=== PATIENT | male | born 1945 | race Caucasian/White ===

== ENCOUNTER 2016-05-20 21:52 | Inpatient (IN) | payer MEDICARE, MEDICAID ==
[~2016-05-20] VITALS: Ht 188 cm; Wt 112.2 kg
[~2016-05-20 21:52] MED LIST changes: -CALCIUM CARB500 MG GT; -PIPERACILLIN IV; -TAZOBACTAM IV; -VANCO-0.9%1.75 GM/50 IV; -[UNRECOGNIZED DRUG - OTHER] IV
[2016-05-20 21:54] VITALS: BP 117/89
--- NOTE | 2016-05-20 22:18 | Emergency Room Report ---
History of Present Illness Time Seen by [id number] Presenting Problem in Triage Pt arrived:Ambulance Stretcher Presenting Problem:C/O VOMITING X 2 DAYS WITH CONGESTION. 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 N Clinical Suspician of Infection? Y Mental Status: 1 - Regular (Normal Baseline) Sepsis Risk:Severe Sepsis Risk Have you (or family members/close friends) recently traveled outside the [place]? N If Yes, where/when: Have you had exposure to infectious disease within the past month? N TB? Other? Specify: Comment The patient is brought in by ambulance from a senior care. The report given is that he has been vomiting for 2 days and they are concerned about possible aspiration. Upon my encounter, the patient is not verbally responsive to questions and does not follow commands. He appears alert and aware of my presence however. Reported congested respirations and SaO2 90%. ALLERGIES Coded Allergies: tuberculin, purified protein deriva (tuberculin,purif.prot.deriv.) (Mild, ) Home Medications Reported Medications Ascorbic Acid (Vitamin C) 1,000 MG GT DAILY Acetaminophen (Acetaminophen Extra Strength) 1,000 MG PO Q6HP PRN PAIN/FEVER GUAIFENESIN/DEXTROMETHORPHAN (Q-Tussin Dm Syrup) 10 ML PO Q4HP PRN COUGH ALBUTEROL (Albuterol 0.083% Neb) 2.5 MG INH Q6HP PRN SHORTNESS OF BREATH Bisacodyl (Bisacodyl Supp) 10 MG [place] DAILYP PRN CONSTIPATION LACTOSE-REDUCED FOOD/FIBER (Jevity 1.5 Tree Liquid) 55 ML GT Q1 ONDANSETRON HCL (Zofran 4MG Tab) 4 MG PO DAILYP PRN NAUSEA Ferrous Sulfate (Ferrous Sulfate 220MG/5ML Elixir;473ML Bottle) 330 MG GT DAILY VALPROIC ACID ( SODIUM SALT) (Depakene) 750 MG GT TID MULTIVITS W-MIN/FERROUS GLUC (Certa Harleen Liquid) 15 ML PO DAILY POLYETHYLENE GLYCOL (Miralax) 17 GM GT DAILY Folic Acid/Mv,Fe,Other Min/Lut (Certa Plus Tablet) 1 EACH PO DAILY LOPERAMIDE HCL (Loperamide) 2 MG GT Q3HP PRN DIARRHEA Clonazepam (Clonazepam 0.5MG) 0.5 MG GT BID Famotidine (Pepcid 20MG Tablet) 20 MG GT BID Metoprolol Tartrate (Metoprolol) 25 MG GT BID Potassium Chloride 7.5 ML GT DAILY Topiramate (Topamax) 50 MG GT BID Lactulose (Lactulose) 20 GM GT DAILYP PRN CONSTIPATION History Medical History General CAD? No Angina: No [place]: No Hypertension? Yes Hyperlipidemia? No CHF? No DVT? No PE? No COPD? No Asthma? No Anemia? No GERD? Yes Gastric ulcers? No GI Bleed? No Hernia? No Thyroid Problems? No Hypothyroidism? No CVA? No Seizures? Yes Diabetes? No Renal Insuffiency? No End Stage Renal Disease? No UTI? Yes Stones? No GB Disease: No Nephritic Syndrome? No Asplenia? No Hepatitis? No Sickle Cell Disease? No Arthritis? No Migraines? No Cataracts? No Glaucoma? No MRSA? No HIV? No TB? No Anxiety? Yes Depression? Yes Cancer? No Immunization Hx DT/Tetanus Unknown Flu 2015-FSN Pneumonia Received In Past Surgical Hx Previous Surgery?Y HAS HAD BRAIN SURGERY G-TUBE PLACEMENT SUPRA-PUBIC CATH GROSHONG CATHETER Family History Family Hx Diabetes No CAD No Hypertension No Hyperlipidemia No Cancer No TB No Social History Smoking Hx Smoker: Unknown if Ever Smoked Tobacco: No Packs/day N/A Alcohol Alcohol: No Review of Systems All Other Systems Reviewed and Negative (unobtainable due to condition) Physical Exam Vital Signs Vital Signs Date Time Temp Pulse Resp B/P Pulse O2 O2 Flow FiO2 Ox Delivery Rate 05/21 0016 98.4 52 24 154/83 88 3 05/208 96.9 72 24 129/78 91 3 05/20 2321 74 24 127/89 93 3 05/20 2211 94 05/20 2201 24 94 2 05/20 2154 100.1 90 24 117/89 94 General Appearance debilitated, nonverbal. Alert and follows me with his eyes, but does not answer questions or follow commands. Eye Exam - bilateral eye normal exam, bilateral eye PERRL, bilateral eye EOMI Ear, Nose, Throat hearing grossly normal, normal ENT inspection Neck normal inspection, non-tender, supple, full range of motion Respiratory Status Yes: trachea midline, chest symmetrical. No: respiratory distress. Lung Sounds bilateral: inspiration (congested upper airway sounds), expiration (congested upper airway sounds). Cardiovascular normal exam, regular rate/rhythm, no peripheral edema, no gallop, no JVD, no murmur, no rub, normal peripheral pulses Peripheral Pulses Pulses normal Yes Gastrointestinal normal bowel sounds, soft, gastrostomy tube and a suprapubic catheter Extremities contractures of the hands. Good muscle tone of arms., does not move legs spontaneously or to stimulus., bandages and heel pads present bilaterally. No signs of cellulitis on legs. Neurologic alert Mental status normal mood/affect Skin intact, normal color, warm/dry Medical Decision Making LABS/Meds/Orders Pt receiving controlled substance in ED? No Results/Orders Laboratory Tests 05/20/16 2336: Urine Color YELLOW, Urine Appearance CLEAR, Urine pH 8.0, Ur Specific [place] 1.020, Urine Protein 3+ H, Urine Ketones TRACE H, Urine Blood 1+ H, Urine Nitrate NEGATIVE, Urine Bilirubin NEGATIVE, Urine Urobilinogen 1.0, Ur Leukocyte Esterase 2+ H, Urine RBC 3-5, Urine WBC 10-20, Ur Squamous Epith Cells 5-10, Calcium Oxalate Crystal 1+, Triple Phos Crystals 2+, Amorphous Sediment 1+, Urine Bacteria 2+, Urine Glucose NEGATIVE 05/20/16 2230: Amylase 169 H, Lipase 254 05/20/16 2215: Troponin I 0.06 05/20/16 221: Lactic Acid 3.3 H 05/20/162214: Sodium 139, Potassium 4.0, Chloride 97 L, Carbon Dioxide 28, BUN 27 H, Creatinine 1.2, Estimated Creat Clear 88, Estimated GFR (MDRD) 60, Glucose 176 H, Calcium 9.1, Total Bilirubin 0.6, AST 36, ALT 21, Alkaline Phosphatase 109, Total Protein 9.4 H, Albumin 2.5 L, Globulin 6.9 H, Albumin/Globulin Ratio 0.4 L, WBC 20.4 *H, RBC 4.09 L, Hgb 14.5, Hct 45.0, MCV 110.0 H, RDW 14.4, Plt Count 297, MPV 7.5, Gran % 86.7 H, Gran # 17.4 H, Total Counted 100, Lymphocytes % 8.3 L, Monocytes % 4.7, Eosinophils % 0.2, Basophils % 0.1, Neutrophils 89 H, Lymphocytes (Manual) 8 L, Lymphocytes # 1.7, Monocytes ( Manual) 3, Monocytes # 0.9, Eosinophils # 0.0, Basophils # 0.0, Platelet Estimate NORMAL, Anisocytosis 1+, PUBS MCHC 32.0, MCH 35.2 H Current Medication Orders Sig/Mohit Start time Last Medication Dose Route Stop Time Status Admin Clindamycin Phosphate 600 MG ONCE ONE 05/20 2344 DC 05/20 Sodium Chloride 100 ML IV 05/21 0046 2345 Levofloxacin/Dextrose 150 ML ONCE ONE 05/20 2345 r 05/20 IV 05/21 0114 2348 Miscellaneous 1 EACH CONSULT PHARMACY 05/20 2345 AC Information * 05/21 1137 Clindamycin Phosphate 0 .STK-MED ONE 05/20 2344 DC .ROUTE Sodium Chloride 100 ML .STK-MED ONE 05/20 2344 DC IV Levofloxacin/Dextrose 150 ML .STK-MED ONE 05/20 2343 DC IV Sodium Chloride 1,000 ML .Q1H1M 05/20 2330 AC 05/20 IV 05/21 0245 2323 Sodium Chloride 1,000 ML .STK-MED ONE 05/20 2317 DC IV Sodium Chloride 2,000 ML .STK-MED ONE 05/20 2317 DC IV Acetaminophen 0 .STK-MED ONE 05/20 2248 DC PA Acetaminophen 650 MG ONCE ONE 05/20 2245 DC 05/20 PA 05/20 224 224 Sodium Chloride 10 ML PRN PRN 05/20 2215 AC IV 05/21 2209 Orders Procedure Date/time Status DIET-NOTHING BY MOUTH 05/21 B Active CULTURE, URINE 05/20 2336 Active LIPASE 05/20 2259 Complete AMYLASE 05/[address] ABD & PELVIS W/O CONTRAST 05/20 2246 Active LACTIC ACID FOLLOW UP 05/[address] ABD/PELVIS REQ 05/20 2244 Complete 12 LEAD EKG-BESSON (INITIAL) 05/20 2226 Active ELECTROCARDIOGRAM REQUEST 05/20 2226 Active TROPONIN I 05/20 2226 Complete DIFFERENTIAL-WBC 05/20 2214 Complete CHEST-PORTABLE 05/20 2209 Active SUCTION PER ORAL/NASAL/ET PRN 05/20 2209 Active IV SALINE LOCK 05/20 2209 Active OXYGEN PER NURSE 05/20 2209 Active CULTURE, BLOOD 05/20 2209 Active URINALYSIS/COMPLETE 05/20 2209 Complete LACTIC ACID 05/20 2209 Complete CBC WITH AUTO DIFF 05/20 2209 Complete CHEM 12 PROFILE 05/20 2209 Complete CM/EKG CM/EKG Comments EKG interpreted by Kalia Blanchard MD: Rhythm: sinus tachycardia Rate: 112 [place]: LEFT Ectopy: none Conduction: Incomplete LEFT bundle branch block ST Segment Changes: none T Wave Changes: none Q Waves: none No evidence of acute ischemia or injury Baseline artifact present, but I consider the EKG adequate for accurate interpretation. XRAY/CT/US XRAY/CT/US XRAY chest Comment X-ray interpreted by Kalia Blanchard M.D.: streaky R perihilar markings, no definite confluent infiltrate CT abdomen, pelvis Comment CT scan interpreted by [facility] radiologist. Faxed report received and reviewed: No acute findings. Atelectasis both lung bases. Progress - 11:35 PM: Case discussed with Dr. Clemens for Dr. Rowan. Antibiotics discussed. We will treat with Levaquin, clindamycin, and vancomycin for sepsis and possible aspiration pneumonia. I have discussed the case with Dr. Clemens who agrees to admit the patient to the hospital. We discussed the patient's clinical information, including history, exam, laboratory and radiology results and ED course. Per hospital procedure, I will write temporary bridge inpatient orders on the patient. Specific orders requested by the admitting physician: Sepsis order set. Antibiotics as above. Departure Departure Disposition Still a Patient Clinical Impression Primary Impression: Sepsis Qualifiers: Sepsis type: sepsis due to unspecified organism Qualified Code: A41.9 - Sepsis, unspecified organism Condition STABLE Referrals Ran Florentino (Family) ED Critical Care Critical Care No at [phone]
[2016-05-20 22:34] LABS: LYMPH # 1.7 K/mm3 (0.7-4.5); LYMPH % 8.3 % (10-50)
[2016-05-20 22:39] LABS: HEMOGLOBIN 14.5 g/dL (14.1-18.0)
[2016-05-20 23:54] LABS: URINE BILIRUBIN - DIPSTICK NEGATIVE (NEG); URINE BLOOD 1+ (NEG)
[2016-05-21] VITALS (17 sets, daily range): BP systolic 119–152; BP diastolic 58–85
[2016-05-21 00:22] LABS: NEUTROPHILS 89 % (42-76)
[2016-05-21] MEDS ORDERED: NORCO 325 MG-101 TAB GT (07:01)
[2016-05-21] MEDS ORDERED: CALCIUM CARB500 MG GT (07:02)
[2016-05-21 07:48] LABS: LYMPH # 1.3 K/mm3 (0.7-4.5); LYMPH % 9.6 % (10-50)
[2016-05-21 08:17] LABS: HEMOGLOBIN 11.7 g/dL (14.1-18.0)
--- NOTE | 2016-05-21 08:25 | CONSULT NOTE ---
Pharmacokinetic Consult Date of consult: 05/21/16 Time of consult: 822 Referring provider: DR. CARROLL Reason for consult: VANCOMYCIN DOSING Allergies: Coded Allergies: tuberculin, purified protein deriva (tuberculin,purif.prot.deriv.) (Mild, ) Home Medications: Reported Medications Ascorbic Acid (Vitamin C) 1,000 MG GT DAILY Acetaminophen (Acetaminophen Extra Strength) 1,000 MG PO Q6HP PRN PAIN/FEVER GUAIFENESIN/DEXTROMETHORPHAN (Q-Tussin Dm Syrup) 10 ML PO Q4HP PRN COUGH ALBUTEROL (Albuterol 0.083% Neb) 2.5 MG INH Q6HP PRN SHORTNESS OF BREATH Bisacodyl (Bisacodyl Supp) [address] DAILYP PRN CONSTIPATION LACTOSE-REDUCED FOOD/FIBER (Jevity 1.5 Tree Liquid) 55 ML GT Q1 ONDANSETRON HCL (Zofran 4MG Tab) 4 MG PO DAILYP PRN NAUSEA Ferrous Sulfate (Ferrous Sulfate 220MG/5ML Elixir;473ML Bottle) 330 MG GT DAILY VALPROIC ACID ( SODIUM SALT) (Depakene) 750 MG GT TID MULTIVITS W-MIN/FERROUS GLUC (Certa Harleen Liquid) 15 ML PO DAILY POLYETHYLENE GLYCOL (Miralax) 17 GM GT DAILY Folic Acid/Mv,Fe,Other Min/Lut (Certa Plus Tablet) 1 EACH PO DAILY HYDROCODONE/ACETAMINOPHEN ([place] 10-325 Tablet) 1 TAB PO TID Calcium Carbonate ([id number]) 500 MG PO DAILY LOPERAMIDE HCL (Loperamide) 2 MG GT Q3HP PRN DIARRHEA Clonazepam (Clonazepam 0.5MG) 0.5 MG GT BID Famotidine (Pepcid 20MG Tablet) 20 MG GT BID Metoprolol Tartrate (Metoprolol) 25 MG GT BID Potassium Chloride 7.5 ML GT DAILY Topiramate (Topamax) 50 MG GT BID Lactulose (Lactulose) 20 GM GT DAILYP PRN CONSTIPATION Height (feet): 5 Height (inches): 6.00 Medical History: CAD? No Angina: No [place]: No Hypertension? Yes Hyperlipidemia? No CHF? No DVT? No PE? No COPD? No Asthma? No Anemia? No GERD? Yes Gastric ulcers? No GI Bleed? No Hernia? No Thyroid Problems? No Hypothyroidism? No CVA? No Seizures? Yes Diabetes? No Renal Insuffiency? No UTI? Yes Stones? No GB Disease: No Nephritic Syndrome? No Asplenia? No Hepatitis? No Sickle Cell Disease? No Arthritis? No Migraines? No Cataracts? No Glaucoma? No MRSA? No HIV? No TB? No Anxiety? Yes Depression? Yes Cancer? No Labs: Laboratory Tests 05/21/16 0625: WBC 13.3 H, RBC 3.37 L, Hgb 11.7 L, Hct 37.2 L, MCV 110.4 H, RDW 14.5, Plt Count 236, MPV 7.0 L, Gran % 85.1 H, Gran # 11.3 H, Lymphocytes % 9.6 L, Monocytes % 5.1, Eosinophils % 0.1, Basophils % 0.1, Lymphocytes # 1.3, Monocytes # 0.7, Eosinophils # 0.0, Basophils # 0.0, PUBS MCHC 31.3 L, MCH 34.6 H 05/21/16 0230: Lactic Acid 2.5 H 05/20/16 2336: Urine Color YELLOW, Urine Appearance CLEAR, Urine pH 8.0, Ur Specific [place] 1.020, Urine Protein 3+ H, Urine Ketones TRACE H, Urine Blood 1+ H, Urine Nitrate NEGATIVE, Urine Bilirubin NEGATIVE, Urine Urobilinogen 1.0, Ur Leukocyte Esterase 2+ H, Urine RBC 3-5, Urine WBC 10-20, Ur Squamous Epith Cells 5-10, Calcium Oxalate Crystal 1+, Triple Phos Crystals 2+, Amorphous Sediment 1+, Urine Bacteria 2+, Urine Glucose NEGATIVE 05/20/160: Amylase 169 H, Lipase 254 05/20/165: Troponin I 0.06 05/20/162214: Lactic Acid 3.3 H 05/20/162214: Sodium 139, Potassium 4.0, Chloride 97 L, Carbon Dioxide 28, BUN 27 H, Creatinine 1.2, Estimated Creat Clear 88, Estimated GFR (MDRD) 60, Glucose 176 H, Calcium 9.1, Total Bilirubin 0.6, AST 36, ALT 21, Alkaline Phosphatase 109, Total Protein 9.4 H, Albumin 2.5 L, Globulin 6.9 H, Albumin/Globulin Ratio 0.4 L, WBC 20.4 *H, RBC 4.09 L, Hgb 14.5, Hct 45.0, MCV 110.0 H, RDW 14.4, Plt Count 297, MPV 7.5, Gran % 86.7 H, Gran # 17.4 H, Total Counted 100, Lymphocytes % 8.3 L, Monocytes % 4.7, Eosinophils % 0.2, Basophils % 0.1, Neutrophils 89 H, Lymphocytes (Manual) 8 L, Lymphocytes # 1.7, Monocytes ( Manual) 3, Monocytes # 0.9, Eosinophils # 0.0, Basophils # 0.0, Platelet Estimate NORMAL, Anisocytosis 1+, PUBS MCHC 32.0, MCH 35.2 H Microbiology 05/20 2336 URINE CC: Urine Culture - RECD 05/20 2214 BLOOD: Anaerobic Blood Culture - RECD 05/20 2214 BLOOD: Aerobic Blood Culture - RECD 05/20 2214 BLOOD: Anaerobic Blood Culture - RECD 05/20 2214 BLOOD: Aerobic Blood Culture - RECD Problem List: 1. Sepsis Plan: BASED ON PATIENT FACTORS, RECOMMEND VANCOMYCIN DOSE OF 2,000 MG IV DAILY. PHARMACY WILL CONTINUE TO FOLLOW AND ADJUST DOSE APPROPRIATE. at 0825
--- NOTE | 2016-05-21 08:25 | CONSULT NOTE ---
Pharmacokinetic Consult Date of consult: 05/21/16 Time of consult: 822 Referring provider: DR. CARROLL Reason for consult: VANCOMYCIN DOSING Allergies: Coded Allergies: tuberculin, purified protein deriva (tuberculin,purif.prot.deriv.) (Mild, ) Home Medications: Reported Medications Ascorbic Acid (Vitamin C) 1,000 MG GT DAILY Acetaminophen (Acetaminophen Extra Strength) 1,000 MG PO Q6HP PRN PAIN/FEVER GUAIFENESIN/DEXTROMETHORPHAN (Q-Tussin Dm Syrup) 10 ML PO Q4HP PRN COUGH ALBUTEROL (Albuterol 0.083% Neb) 2.5 MG INH Q6HP PRN SHORTNESS OF BREATH Bisacodyl (Bisacodyl Supp) 10 MG [place] DAILYP PRN CONSTIPATION LACTOSE-REDUCED FOOD/FIBER (Jevity 1.5 Tree Liquid) 55 ML GT Q1 ONDANSETRON HCL (Zofran 4MG Tab) 4 MG PO DAILYP PRN NAUSEA Ferrous Sulfate (Ferrous Sulfate 220MG/5ML Elixir;473ML Bottle) 330 MG GT DAILY VALPROIC ACID ( SODIUM SALT) (Depakene) 750 MG GT TID MULTIVITS W-MIN/FERROUS GLUC (Certa Harleen Liquid) 15 ML PO DAILY POLYETHYLENE GLYCOL (Miralax) 17 GM GT DAILY Folic Acid/Mv,Fe,Other Min/Lut (Certa Plus Tablet) 1 EACH PO DAILY HYDROCODONE/ACETAMINOPHEN ([place] 10-325 Tablet) 1 TAB PO TID Calcium Carbonate ([id number]) 500 MG PO DAILY LOPERAMIDE HCL (Loperamide) 2 MG GT Q3HP PRN DIARRHEA Clonazepam (Clonazepam 0.5MG) 0.5 MG GT BID Famotidine (Pepcid 20MG Tablet) 20 MG GT BID Metoprolol Tartrate (Metoprolol) 25 MG GT BID Potassium Chloride 7.5 ML GT DAILY Topiramate (Topamax) 50 MG GT BID Lactulose (Lactulose) 20 GM GT DAILYP PRN CONSTIPATION Height (feet): 5 Height (inches): 6.00 Medical History: CAD? No Angina: No [place]: No Hypertension? Yes Hyperlipidemia? No CHF? No DVT? No PE? No COPD? No Asthma? No Anemia? No GERD? Yes Gastric ulcers? No GI Bleed? No Hernia? No Thyroid Problems? No Hypothyroidism? No CVA? No Seizures? Yes Diabetes? No Renal Insuffiency? No UTI? Yes Stones? No GB Disease: No Nephritic Syndrome? No Asplenia? No Hepatitis? No Sickle Cell Disease? No Arthritis? No Migraines? No Cataracts? No Glaucoma? No MRSA? No HIV? No TB? No Anxiety? Yes Depression? Yes Cancer? No Labs: Laboratory Tests 05/21/16 0625: WBC 13.3 H, RBC 3.37 L, Hgb 11.7 L, Hct 37.2 L, MCV 110.4 H, RDW 14.5, Plt Count 236, MPV 7.0 L, Gran % 85.1 H, Gran # 11.3 H, Lymphocytes % 9.6 L, Monocytes % 5.1, Eosinophils % 0.1, Basophils % 0.1, Lymphocytes # 1.3, Monocytes # 0.7, Eosinophils # 0.0, Basophils # 0.0, PUBS MCHC 31.3 L, MCH 34.6 H 05/21/16 0230: Lactic Acid 2.5 H 05/20/16 2336: Urine Color YELLOW, Urine Appearance CLEAR, Urine pH 8.0, Ur Specific [place] 1.020, Urine Protein 3+ H, Urine Ketones TRACE H, Urine Blood 1+ H, Urine Nitrate NEGATIVE, Urine Bilirubin NEGATIVE, Urine Urobilinogen 1.0, Ur Leukocyte Esterase 2+ H, Urine RBC 3-5, Urine WBC 10-20, Ur Squamous Epith Cells 5-10, Calcium Oxalate Crystal 1+, Triple Phos Crystals 2+, Amorphous Sediment 1+, Urine Bacteria 2+, Urine Glucose NEGATIVE 05/20/160: Amylase 169 H, Lipase 254 05/20/165: Troponin I 0.06 05/20/162214: Lactic Acid 3.3 H 05/20/162214: Sodium 139, Potassium 4.0, Chloride 97 L, Carbon Dioxide 28, BUN 27 H, Creatinine 1.2, Estimated Creat Clear 88, Estimated GFR (MDRD) 60, Glucose 176 H, Calcium 9.1, Total Bilirubin 0.6, AST 36, ALT 21, Alkaline Phosphatase 109, Total Protein 9.4 H, Albumin 2.5 L, Globulin 6.9 H, Albumin/Globulin Ratio 0.4 L, WBC 20.4 *H, RBC 4.09 L, Hgb 14.5, Hct 45.0, MCV 110.0 H, RDW 14.4, Plt Count 297, MPV 7.5, Gran % 86.7 H, Gran # 17.4 H, Total Counted 100, Lymphocytes % 8.3 L, Monocytes % 4.7, Eosinophils % 0.2, Basophils % 0.1, Neutrophils 89 H, Lymphocytes (Manual) 8 L, Lymphocytes # 1.7, Monocytes ( Manual) 3, Monocytes # 0.9, Eosinophils # 0.0, Basophils # 0.0, Platelet Estimate NORMAL, Anisocytosis 1+, PUBS MCHC 32.0, MCH 35.2 H Microbiology 05/20 2336 URINE CC: Urine Culture - RECD 05/20 2214 BLOOD: Anaerobic Blood Culture - RECD 05/20 2214 BLOOD: Aerobic Blood Culture - RECD 05/20 2214 BLOOD: Anaerobic Blood Culture - RECD 05/20 2214 BLOOD: Aerobic Blood Culture - RECD Problem List: 1. Sepsis Plan: BASED ON PATIENT FACTORS, RECOMMEND VANCOMYCIN DOSE OF 2,000 MG IV DAILY. PHARMACY WILL CONTINUE TO FOLLOW AND ADJUST DOSE APPROPRIATE. at 0825
--- NOTE | 2016-05-21 08:49 | HISTORY AND PHYSICAL REPORT ---
Demographics: Admit date: 05/20/16 Chief complaint: Mental status change/hypoxia PRIMARY DIAGNOSIS: SEVERE SEPSIS; SEPTIC SHOCK Allergies: Coded Allergies: tuberculin, purified protein deriva (tuberculin,purif.prot.deriv.) (Mild, ) History of present illness: History of present illness: 71-year-old white male well known to the [facility] inpatient service with frequent exacerbation secondary to aspiration pneumonia, cellulitis and urinary tract infections. Sent from his [facility] facility with hypoxia and mental status change, found in the emergency apartment to have evidence of sepsis syndrome with increased lactic acid, white blood cell count and elevated temperature readings. Multiple sources were possibly identified including recurrent aspiration pneumonia, urinary tract infection and significant skin lesions/breakdown/ cellulitis. Admitted to hospital for broad-spectrum antibiotics and sepsis protocol treatment. Past medical history: Family HX Diabetes No CAD No Hypertension No Hyperlipidemia No Cancer No TB No Immunization HX DT/Tetanus Unknown Flu 2015-FSN Pneumonia Received In Past Other PT ALLERGIC TO TUBERCULIN TB Test in last year No General CAD? No Angina: No [place]: No Hypertension? Yes Hyperlipidemia? No CHF? No DVT? No PE? No COPD? No Asthma? No Anemia? No GERD? Yes Gastric ulcers? No GI Bleed? No Hernia? No Thyroid Problems? No Hypothyroidism? No CVA? No Seizures? Yes Diabetes? No Renal Insuffiency? No UTI? Yes Stones? No GB Disease: No Nephritic Syndrome? No Asplenia? No Hepatitis? No Sickle Cell Disease? No Arthritis? No Migraines? No Cataracts? No Glaucoma? No MRSA? No HIV? No TB? No Anxiety? Yes Depression? Yes Cancer? No Past Surgical HX Previous Surgery?Y HAS HAD BRAIN SURGERY G-TUBE PLACEMENT SUPRA-PUBIC CATH GROSHONG CATHETER Current home meds: Reported Medications Ascorbic Acid (Vitamin C) 1,000 MG GT DAILY Acetaminophen (Acetaminophen Extra Strength) 1,000 MG PO Q6HP PRN PAIN/FEVER GUAIFENESIN/DEXTROMETHORPHAN (Q-Tussin Dm Syrup) 10 ML PO Q4HP PRN COUGH ALBUTEROL (Albuterol 0.083% Neb) 2.5 MG INH Q6HP PRN SHORTNESS OF BREATH Bisacodyl (Bisacodyl Supp) 10 MG [place] DAILYP PRN CONSTIPATION LACTOSE-REDUCED FOOD/FIBER (Jevity 1.5 Tree Liquid) 55 ML GT Q1 ONDANSETRON HCL (Zofran 4MG Tab) 4 MG PO DAILYP PRN NAUSEA Ferrous Sulfate (Ferrous Sulfate 220MG/5ML Elixir;473ML Bottle) 330 MG GT DAILY VALPROIC ACID ( SODIUM SALT) (Depakene) 750 MG GT TID MULTIVITS W-MIN/FERROUS GLUC (Certa Harleen Liquid) 15 ML PO DAILY POLYETHYLENE GLYCOL (Miralax) 17 GM GT DAILY Folic Acid/Mv,Fe,Other Min/Lut (Certa Plus Tablet) 1 EACH PO DAILY HYDROCODONE/ACETAMINOPHEN ([place] 10-325 Tablet) 1 TAB PO TID Calcium Carbonate (Rrio-Zvm-860) 500 MG PO DAILY LOPERAMIDE HCL (Loperamide) 2 MG GT Q3HP PRN DIARRHEA Clonazepam (Clonazepam 0.5MG) 0.5 MG GT BID Famotidine (Pepcid 20MG Tablet) 20 MG GT BID Metoprolol Tartrate (Metoprolol) 25 MG GT BID Potassium Chloride 7.5 ML GT DAILY Topiramate (Topamax) 50 MG GT BID Lactulose (Lactulose) 20 GM GT DAILYP PRN CONSTIPATION Social Hx: Smoking HX Tobacco No Type N/A Packs/day N/A Alcohol Alcohol: No Hx of Drug Use Drug Use? 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 Review of systems: Constitutional fever, malaise. Respiratory see HPI. Cardiovascular No no symptoms reported Gastrointestinal/Abdominal see HPI Genitourinary see HPI. Musculoskeletal see HPI. Neurological Yes: no symptoms reported. Exam: Lab data for last 24 hours: Laboratory Tests 05/21/16 0625: WBC 13.3 H, RBC 3.37 L, Hgb 11.7 L, Hct 37.2 L, MCV 110.4 H, RDW 14.5, Plt Count 236, MPV 7.0 L, Gran % 85.1 H, Gran # 11.3 H, Lymphocytes % 9.6 L, Monocytes % 5.1, Eosinophils % 0.1, Basophils % 0.1, Lymphocytes # 1.3, Monocytes # 0.7, Eosinophils # 0.0, Basophils # 0.0, PUBS MCHC 31.3 L, MCH 34.6 H 05/21/16 0230: Lactic Acid 2.5 H 05/20/162335: Urine Color YELLOW, Urine Appearance CLEAR, Urine pH 8.0, Ur Specific [place] 1.020, Urine Protein 3+ H, Urine Ketones TRACE H, Urine Blood 1+ H, Urine Nitrate NEGATIVE, Urine Bilirubin NEGATIVE, Urine Urobilinogen 1.0, Ur Leukocyte Esterase 2+ H, Urine RBC 3-5, Urine WBC 10-20, Ur Squamous Epith Cells 5-10, Calcium Oxalate Crystal 1+, Triple Phos Crystals 2+, Amorphous Sediment 1+, Urine Bacteria 2+, Urine Glucose NEGATIVE 05/20/162229: Amylase 169 H, Lipase 254 05/20/162214: Troponin I 0.06 05/20/162214: Lactic Acid 3.3 H 05/20/162214: Sodium 139, Potassium 4.0, Chloride 97 L, Carbon Dioxide 28, BUN 27 H, Creatinine 1.2, Estimated Creat Clear 88, Estimated GFR (MDRD) 60, Glucose 176 H, Calcium 9.1, Total Bilirubin 0.6, AST 36, ALT 21, Alkaline Phosphatase 109, Total Protein 9.4 H, Albumin 2.5 L, Globulin 6.9 H, Albumin/Globulin Ratio 0.4 L, WBC 20.4 *H, RBC 4.09 L, Hgb 14.5, Hct 45.0, MCV 110.0 H, RDW 14.4, Plt Count 297, MPV 7.5, Gran % 86.7 H, Gran # 17.4 H, Total Counted 100, Lymphocytes % 8.3 L, Monocytes % 4.7, Eosinophils % 0.2, Basophils % 0.1, Neutrophils 89 H, Lymphocytes (Manual) 8 L, Lymphocytes # 1.7, Monocytes ( Manual) 3, Monocytes # 0.9, Eosinophils # 0.0, Basophils # 0.0, Platelet Estimate NORMAL, Anisocytosis 1+, PUBS MCHC 32.0, MCH 35.2 H Microbiology 05/21 2335 URINE CC: Urine Culture - RECD 05/20 2214 BLOOD: Anaerobic Blood Culture - RECD 05/20 2214 BLOOD: Aerobic Blood Culture - RECD 05/20 2214 BLOOD: Anaerobic Blood Culture - RECD 05/20 2214 BLOOD: Aerobic Blood Culture - RECD Admission vital signs: 1ST Vital Signs Result Date Time Pulse Ox 94 05/20 2153 B/P 117/89 05/20 2153 Temp 100.1 05/20 2153 Pulse 90 05/20 2153 Resp 24 05/20 2153 O2 Flow Rate 2 05/20 2200 O2 Delivery OXYGEN 05/21 0158 Additional information: Patient is obtunded, noncommunicative. Lungs have thick rhonchi in all lung cornejo, heart rate regular. Skin perfusion and turgor is poor. Abdomen is soft, G-tube site appears infected and a skin breakdown area around the G-tube site with redness. He has overall lots of skin lesions that are documented in the nursing picture segment of his paper chart. Patient is obtunded, neurologic exam is compromised because of this finding. Plan: Problem List 1. Sepsis 2. UTI (urinary tract infection) 3. HCAP (healthcare-associated pneumonia) 4. Traumatic brain injury Plan: Multiple comorbidities in this critically ill patient. Continue sepsis protocol. Respect DNR status. Overall patient's prognosis is poor. at 0849
--- NOTE | 2016-05-21 08:49 | HISTORY AND PHYSICAL REPORT ---
Demographics: Admit date: 05/20/16 Chief complaint: Mental status change/hypoxia PRIMARY DIAGNOSIS: SEVERE SEPSIS; SEPTIC SHOCK Allergies: Coded Allergies: tuberculin, purified protein deriva (tuberculin,purif.prot.deriv.) (Mild, ) History of present illness: History of present illness: 71-year-old white male well known to the [facility] inpatient service with frequent exacerbation secondary to aspiration pneumonia, cellulitis and urinary tract infections. Sent from his [facility] facility with hypoxia and mental status change, found in the emergency apartment to have evidence of sepsis syndrome with increased lactic acid, white blood cell count and elevated temperature readings. Multiple sources were possibly identified including recurrent aspiration pneumonia, urinary tract infection and significant skin lesions/breakdown/ cellulitis. Admitted to hospital for broad-spectrum antibiotics and sepsis protocol treatment. Past medical history: Family HX Diabetes No CAD No Hypertension No Hyperlipidemia No Cancer No TB No Immunization HX DT/Tetanus Unknown Flu 2015-FSN Pneumonia Received In Past Other PT ALLERGIC TO TUBERCULIN TB Test in last year No General CAD? No Angina: No [place]: No Hypertension? Yes Hyperlipidemia? No CHF? No DVT? No PE? No COPD? No Asthma? No Anemia? No GERD? Yes Gastric ulcers? No GI Bleed? No Hernia? No Thyroid Problems? No Hypothyroidism? No CVA? No Seizures? Yes Diabetes? No Renal Insuffiency? No UTI? Yes Stones? No GB Disease: No Nephritic Syndrome? No Asplenia? No Hepatitis? No Sickle Cell Disease? No Arthritis? No Migraines? No Cataracts? No Glaucoma? No MRSA? No HIV? No TB? No Anxiety? Yes Depression? Yes Cancer? No Past Surgical HX Previous Surgery?Y HAS HAD BRAIN SURGERY G-TUBE PLACEMENT SUPRA-PUBIC CATH GROSHONG CATHETER Current home meds: Reported Medications Ascorbic Acid (Vitamin C) 1,000 MG GT DAILY Acetaminophen (Acetaminophen Extra Strength) 1,000 MG PO Q6HP PRN PAIN/FEVER GUAIFENESIN/DEXTROMETHORPHAN (Q-Tussin Dm Syrup) 10 ML PO Q4HP PRN COUGH ALBUTEROL (Albuterol 0.083% Neb) 2.5 MG INH Q6HP PRN SHORTNESS OF BREATH Bisacodyl (Bisacodyl Supp) 10 MG [place] DAILYP PRN CONSTIPATION LACTOSE-REDUCED FOOD/FIBER (Jevity 1.5 Tree Liquid) 55 ML GT Q1 ONDANSETRON HCL (Zofran 4MG Tab) 4 MG PO DAILYP PRN NAUSEA Ferrous Sulfate (Ferrous Sulfate 220MG/5ML Elixir;473ML Bottle) 330 MG GT DAILY VALPROIC ACID ( SODIUM SALT) (Depakene) 750 MG GT TID MULTIVITS W-MIN/FERROUS GLUC (Certa Harleen Liquid) 15 ML PO DAILY POLYETHYLENE GLYCOL (Miralax) 17 GM GT DAILY Folic Acid/Mv,Fe,Other Min/Lut (Certa Plus Tablet) 1 EACH PO DAILY HYDROCODONE/ACETAMINOPHEN ([place] 10-325 Tablet) 1 TAB PO TID Calcium Carbonate (Jqry-Ekb-653) 500 MG PO DAILY LOPERAMIDE HCL (Loperamide) 2 MG GT Q3HP PRN DIARRHEA Clonazepam (Clonazepam 0.5MG) 0.5 MG GT BID Famotidine (Pepcid 20MG Tablet) 20 MG GT BID Metoprolol Tartrate (Metoprolol) 25 MG GT BID Potassium Chloride 7.5 ML GT DAILY Topiramate (Topamax) 50 MG GT BID Lactulose (Lactulose) 20 GM GT DAILYP PRN CONSTIPATION Social Hx: Smoking HX Tobacco No Type N/A Packs/day N/A Alcohol Alcohol: No Hx of Drug Use Drug Use? 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 Review of systems: Constitutional fever, malaise. Respiratory see HPI. Cardiovascular No no symptoms reported Gastrointestinal/Abdominal see HPI Genitourinary see HPI. Musculoskeletal see HPI. Neurological Yes: no symptoms reported. Exam: Lab data for last 24 hours: Laboratory Tests 05/21/16 0625: WBC 13.3 H, RBC 3.37 L, Hgb 11.7 L, Hct 37.2 L, MCV 110.4 H, RDW 14.5, Plt Count 236, MPV 7.0 L, Gran % 85.1 H, Gran # 11.3 H, Lymphocytes % 9.6 L, Monocytes % 5.1, Eosinophils % 0.1, Basophils % 0.1, Lymphocytes # 1.3, Monocytes # 0.7, Eosinophils # 0.0, Basophils # 0.0, PUBS MCHC 31.3 L, MCH 34.6 H 05/21/16 0230: Lactic Acid 2.5 H 05/20/162335: Urine Color YELLOW, Urine Appearance CLEAR, Urine pH 8.0, Ur Specific [place] 1.020, Urine Protein 3+ H, Urine Ketones TRACE H, Urine Blood 1+ H, Urine Nitrate NEGATIVE, Urine Bilirubin NEGATIVE, Urine Urobilinogen 1.0, Ur Leukocyte Esterase 2+ H, Urine RBC 3-5, Urine WBC 10-20, Ur Squamous Epith Cells 5-10, Calcium Oxalate Crystal 1+, Triple Phos Crystals 2+, Amorphous Sediment 1+, Urine Bacteria 2+, Urine Glucose NEGATIVE 05/20/162229: Amylase 169 H, Lipase 254 05/20/162214: Troponin I 0.06 05/20/162214: Lactic Acid 3.3 H 05/20/162214: Sodium 139, Potassium 4.0, Chloride 97 L, Carbon Dioxide 28, BUN 27 H, Creatinine 1.2, Estimated Creat Clear 88, Estimated GFR (MDRD) 60, Glucose 176 H, Calcium 9.1, Total Bilirubin 0.6, AST 36, ALT 21, Alkaline Phosphatase 109, Total Protein 9.4 H, Albumin 2.5 L, Globulin 6.9 H, Albumin/Globulin Ratio 0.4 L, WBC 20.4 *H, RBC 4.09 L, Hgb 14.5, Hct 45.0, MCV 110.0 H, RDW 14.4, Plt Count 297, MPV 7.5, Gran % 86.7 H, Gran # 17.4 H, Total Counted 100, Lymphocytes % 8.3 L, Monocytes % 4.7, Eosinophils % 0.2, Basophils % 0.1, Neutrophils 89 H, Lymphocytes (Manual) 8 L, Lymphocytes # 1.7, Monocytes ( Manual) 3, Monocytes # 0.9, Eosinophils # 0.0, Basophils # 0.0, Platelet Estimate NORMAL, Anisocytosis 1+, PUBS MCHC 32.0, MCH 35.2 H Microbiology 05/21 2335 URINE CC: Urine Culture - RECD 05/20 2214 BLOOD: Anaerobic Blood Culture - RECD 05/20 2214 BLOOD: Aerobic Blood Culture - RECD 05/20 2214 BLOOD: Anaerobic Blood Culture - RECD 05/20 2214 BLOOD: Aerobic Blood Culture - RECD Admission vital signs: 1ST Vital Signs Result Date Time Pulse Ox 94 05/20 2153 B/P 117/89 05/20 2153 Temp 100.1 05/20 2153 Pulse 90 05/20 2153 Resp 24 05/20 2153 O2 Flow Rate 2 05/20 2200 O2 Delivery OXYGEN 05/21 0158 Additional information: Patient is obtunded, noncommunicative. Lungs have thick rhonchi in all lung cornejo, heart rate regular. Skin perfusion and turgor is poor. Abdomen is soft, G-tube site appears infected and a skin breakdown area around the G-tube site with redness. He has overall lots of skin lesions that are documented in the nursing picture segment of his paper chart. Patient is obtunded, neurologic exam is compromised because of this finding. Plan: Problem List 1. Sepsis 2. UTI (urinary tract infection) 3. HCAP (healthcare-associated pneumonia) 4. Traumatic brain injury Plan: Multiple comorbidities in this critically ill patient. Continue sepsis protocol. Respect DNR status. Overall patient's prognosis is poor. at 0849
--- NOTE | 2016-05-21 08:55 | PHARMACY CLINIC NOTE ---
Patient Demographics Patient Demographics Admission date: 05/21/16 Date: 05/21/16 Time: 0854 Allergies Coded Allergies: tuberculin, purified protein deriva (tuberculin,purif.prot.deriv.) (Mild, ) HEIGHT- FT: 5 IN: 6.00 K.263 VTE General Information Labs: Laboratory Tests 05/21 05/20 0625 2215 Hematology Hgb (14.1 - 18.0 g/dL) 11.7 L 14.5 Hct (42.0 - 52.0 %) 37.2 L 45.0 Plt Count (142 - 424 K/mm3) 236 297 Disclaimer The following section includes nursing documentation that has been pulled in for pharmacy review. Patient's VTE score: 5 Patient's VTE Risk: LOW RISK Clinical trial participant? No VTE prophylaxis [id number] VTE prophylaxis ordered? Yes Type of prophylaxis/treatment: JEFF at 0855
--- NOTE | 2016-05-21 09:25 | RADIOLOGY REPORT PS360 ---
CHEST-PORTABLE COMPARISON: Portable spine chest 12/16/2015 HISTORY: Congestion TECHNIQUE: Portable upright chest FINDINGS: Is a fairly good inspiration and the lung cornejo are clear of infiltrate. Cardiac size is normal. There is minimal post inflammatory scarring left lower lobe and this was noted previously. There is no pleural fluid. IMPRESSION: Nonacute chest findings
--- NOTE | 2016-05-21 09:32 | RADIOLOGY REPORT PS360 ---
CT ABD PELVIS W/O CONTRAST COMPARISON: None HISTORY: Abdominal pain and vomiting TECHNIQUE: Multiaxial scans obtained from the hemidiaphragms the pelvic floor and were performed without IV or oral contrast. Sagittal and coronal reformatted images were evaluated as well. FINDINGS: Scans through the lower chest show minimal atelectasis or scarring in both posterior gutters with mild pleural thickening. There is a small hiatal hernia. Cardiac size is normal though there is coronary artery calcification noted. There is a PEG tube seen within the stomach mildly distended with fluid. The liver spleen pancreas and gallbladder appear grossly normal. The adrenal glands are normal. The kidneys are normal size and there is a tiny nonobstructing calculus upper pole left kidney. There is mild arteriosclerotic calcification of the infrarenal aorta but there is no aneurysm. There is abundant fat within the mesentery. The small bowel appears normal. The appendix appears normal. There are scattered stool throughout the colon. There is a Hagen catheter in urinary bladder which is decompressed. The prostate is normal in size. There is generalized osteopenia of the lower thoracic and lumbar spine and bony pelvis. There are a few old mild compression fractures lower thoracic and lumbar spine. There is prominent. Articular ossifications or ossifications about the left hip capsule. IMPRESSION: Chronic nonacute findings as described above, I agree the [facility] report
[2016-05-22 04:02] VITALS: BP 141/73
[2016-05-22 07:47] VITALS: BP 134/75
--- NOTE | 2016-05-22 07:58 | ACUTE CARE PROGRESS NOTE (QUA) ---
Progress Notes Subjective Date 05/22/16 Time 0756 Note Patient has been more alert, has been responsive to the nursing staff overnight. Nursing staff does report an episode of what seemed to be seizure activity. In regards to his sepsis issues cultures being negative. He continues to be on sepsis protocol antibiotics. On exam a slightly more alert. Lungs with rhonchi. Abdomen soft, no change in G- tube examination or neurologic status. Objective Findings Last VS-Temp:98.6 B/P:134/75 Pulse:82 Resp:20 SaO2:92 OXYGEN Last weight lbs:236 oz:06 K.218 Method:Bed Scales Assessment/Plan Problem List 1. Sepsis Qualifiers: Sepsis type: sepsis due to unspecified organism Qualified Code: A41.9 - Sepsis, unspecified organism 2. UTI (urinary tract infection) 3. HCAP (healthcare-associated pneumonia) 4. Traumatic brain injury Patient condition Improving Plan: continue current care, labs show improvement in his leukocytosis. Electrolytes pending. Low-dose normal saline infusion today. Continue antibiotics. Await culture results. Restart seizure medications from home records. This inpt stay is expected to cross 2 MNs from start of care Yes at 0758
[2016-05-22 08:25] VITALS: BP 134/75
[2016-05-22 20:25] VITALS: BP 152/75
[2016-05-22 22:29] VITALS: BP 152/75
[2016-05-23] VITALS (7 sets, daily range): BP systolic 139–156; BP diastolic 67–86
--- NOTE | 2016-05-23 08:07 | ACUTE CARE PROGRESS NOTE (QUA) ---
Progress Notes Subjective Date 05/23/16 Time 0806 Note Patient is marginally more alert. No seizure-like activities noted by nursing staff overnight. Culture results noted, critical low potassium result noted. Patient is minimally responsive, shakes his head no when asked about pain. Lungs have rhonchi that sound like a thick mucus throughout his lung passageways. Abdomen is soft, Objective Findings Last VS-Temp:99.0 B/P:145/72 Pulse:83 Resp:18 SaO2:96 OXYGEN Last weight lbs:239 oz:6 K.579 Method:Bed Scales Assessment/Plan Problem List 1. Sepsis Qualifiers: Sepsis type: sepsis due to unspecified organism Qualified Code: A41.9 - Sepsis, unspecified organism 2. UTI (urinary tract infection) 3. HCAP (healthcare-associated pneumonia) 4. Traumatic brain injury Patient condition Improving Plan: continue current care This inpt stay is expected to cross 2 MNs from start of care Yes Antibiotic Stewardship (2) Current Culture Results Microbiology 05/20 2336 URINE CC: Urine Culture - UNV Pending 05/20 221 BLOOD: Anaerobic Blood Culture - RECD 05/20 221 BLOOD: Aerobic Blood Culture - RECD Infxn that will respond? Yes Right drug,dose,and route? Yes More targeted antbx? No How long atbx needed? 10 at 0807
[2016-05-24 05:12] VITALS: BP 144/60
[2016-05-24 07:06] LABS: HEMOGLOBIN 12.1 g/dL (14.1-18.0); LYMPH # 1.6 K/mm3 (0.7-4.5); LYMPH % 22.7 % (10-50)
[2016-05-24 07:49] VITALS: BP 132/74
[2016-05-24 08:23] VITALS: BP 132/74
--- NOTE | 2016-05-24 08:30 | CONSULT NOTE ---
Pharmacokinetic Consult Date of consult: 05/24/16 Time of consult: 826 Referring provider: DR. CARROLL Reason for consult: VANCOMYCIN TROUGH LEVEL Allergies: Coded Allergies: tuberculin, purified protein deriva (tuberculin,purif.prot.deriv.) (Mild, ) Home Medications: Reported Medications Ascorbic Acid (Vitamin C) 1,000 MG GT DAILY GUAIFENESIN/DEXTROMETHORPHAN (Q-Tussin Dm Syrup) 10 ML PO Q4HP PRN COUGH ALBUTEROL (Albuterol 0.083% Neb) 2.5 MG INH Q6HP PRN SHORTNESS OF BREATH Bisacodyl (Bisacodyl Supp) 10 MG [place] DAILYP PRN CONSTIPATION LACTOSE-REDUCED FOOD/FIBER (Jevity 1.5 Tree Liquid) 55 ML GT Q1 Acetaminophen (Acetaminophen Extra Strength) 1,000 MG GT Q6HP PRN PAIN/FEVER ONDANSETRON HCL (Zofran 4MG Tab) 4 MG GT DAILYP PRN NAUSEA Folic Acid/Mv,Fe,Other Min/Lut (Certa Plus Tablet) 1 EACH GT DAILY HYDROCODONE/ACETAMINOPHEN ([place] 10-325 Tablet) 1 TAB GT TID Calcium Carbonate (Pvnv-Zbh-562) 500 MG GT DAILY Ferrous Sulfate (Ferrous Sulfate 220MG/5ML Elixir;473ML Bottle) 330 MG GT DAILY VALPROIC ACID ( SODIUM SALT) (Depakene) 750 MG GT TID POLYETHYLENE GLYCOL (Miralax) 17 GM GT DAILY LOPERAMIDE HCL (Loperamide) 2 MG GT Q3HP PRN DIARRHEA Clonazepam (Clonazepam 0.5MG) 0.5 MG GT BID Famotidine (Pepcid 20MG Tablet) 20 MG GT BID Metoprolol Tartrate (Metoprolol) 25 MG GT BID Potassium Chloride 7.5 ML GT DAILY Topiramate (Topamax) 50 MG GT BID Lactulose (Lactulose) 20 GM GT DAILYP PRN CONSTIPATION Height (feet): 6 Height (inches): 2.00 Medical History: CAD? No Angina: No [place]: No Hypertension? Yes Hyperlipidemia? No CHF? No DVT? No PE? No COPD? No Asthma? No Anemia? No GERD? Yes Gastric ulcers? No GI Bleed? No Hernia? No Thyroid Problems? No Hypothyroidism? No CVA? No Seizures? Yes Diabetes? No Renal Insuffiency? No UTI? Yes Stones? No GB Disease: No Nephritic Syndrome? No Asplenia? No Hepatitis? No Sickle Cell Disease? No Arthritis? No Migraines? No Cataracts? No Glaucoma? No MRSA? No HIV? No TB? No Anxiety? Yes Depression? Yes Cancer? No Labs: Laboratory Tests 05/24/16 0600: Sodium 146 H, Potassium 3.4 L, Chloride 116 H, Carbon Dioxide 24, BUN 26 H, Creatinine 0.8, Estimated Creat Clear 131, Estimated GFR (MDRD) 96, Glucose 120 H, Calcium 8.2 L, Total Bilirubin 0.3, AST 25, ALT 25, Alkaline Phosphatase 83, Total Protein 7.5, Albumin 1.9 L, Globulin 5.6 H, Albumin/Globulin Ratio 0.3 L, WBC 7.2, RBC 3.35 L, Hgb 12.1 L, Hct 38.0 L, MCV 113.4 H, RDW 14.7, Plt Count 211, MPV 7.0 L, Gran % 69.6, Gran # 5.0, Lymphocytes % 22.7, Monocytes % 6.9, Eosinophils % 0.6, Basophils % 0.1, Lymphocytes # 1.6, Monocytes # 0.5, Eosinophils # 0.0, Basophils # 0.0, PUBS MCHC 31.9, MCH 36.1 H 05/23/16 1835: Vancomycin Trough 15.8 H Problem List: 1. Urinary tract infection with hematuria 2. Urinary tract infection due to extended-spectrum beta lactamase (ESBL) producing Escherichia coli Plan: BASED ON VANCOMYCIN TROUGH LEVEL, RECOMMEND CONTINUING VANCOMYCIN 2 GM IV Q18H. PHARMACY WILL CONTINUE TO MONITOR AND ADJUST APPROPRIATE. at 0830
--- NOTE | 2016-05-24 08:30 | CONSULT NOTE ---
Pharmacokinetic Consult Date of consult: 05/24/16 Time of consult: 826 Referring provider: DR. CARROLL Reason for consult: VANCOMYCIN TROUGH LEVEL Allergies: Coded Allergies: tuberculin, purified protein deriva (tuberculin,purif.prot.deriv.) (Mild, ) Home Medications: Reported Medications Ascorbic Acid (Vitamin C) 1,000 MG GT DAILY GUAIFENESIN/DEXTROMETHORPHAN (Q-Tussin Dm Syrup) 10 ML PO Q4HP PRN COUGH ALBUTEROL (Albuterol 0.083% Neb) 2.5 MG INH Q6HP PRN SHORTNESS OF BREATH Bisacodyl (Bisacodyl Supp) 10 MG AL DAILYP PRN CONSTIPATION LACTOSE-REDUCED FOOD/FIBER (Jevity 1.5 Tree Liquid) 55 ML GT Q1 Acetaminophen (Acetaminophen Extra Strength) 1,000 MG GT Q6HP PRN PAIN/FEVER ONDANSETRON HCL (Zofran 4MG Tab) 4 MG GT DAILYP PRN NAUSEA Folic Acid/Mv,Fe,Other Min/Lut (Certa Plus Tablet) 1 EACH GT DAILY HYDROCODONE/ACETAMINOPHEN (Basile 10-325 Tablet) 1 TAB GT TID Calcium Carbonate ([id number]) 500 MG GT DAILY Ferrous Sulfate (Ferrous Sulfate 220MG/5ML Elixir;473ML Bottle) 330 MG GT DAILY VALPROIC ACID ( SODIUM SALT) (Depakene) 750 MG GT TID POLYETHYLENE GLYCOL (Miralax) 17 GM GT DAILY LOPERAMIDE HCL (Loperamide) 2 MG GT Q3HP PRN DIARRHEA Clonazepam (Clonazepam 0.5MG) 0.5 MG GT BID Famotidine (Pepcid 20MG Tablet) 20 MG GT BID Metoprolol Tartrate (Metoprolol) 25 MG GT BID Potassium Chloride 7.5 ML GT DAILY Topiramate (Topamax) 50 MG GT BID Lactulose (Lactulose) 20 GM GT DAILYP PRN CONSTIPATION Height (feet): 6 Height (inches): 2.00 Medical History: CAD? No Angina: No HI: No Hypertension? Yes Hyperlipidemia? No CHF? No DVT? No PE? No COPD? No Asthma? No Anemia? No GERD? Yes Gastric ulcers? No GI Bleed? No Hernia? No Thyroid Problems? No Hypothyroidism? No CVA? No Seizures? Yes Diabetes? No Renal Insuffiency? No UTI? Yes Stones? No GB Disease: No Nephritic Syndrome? No Asplenia? No Hepatitis? No Sickle Cell Disease? No Arthritis? No Migraines? No Cataracts? No Glaucoma? No MRSA? No HIV? No TB? No Anxiety? Yes Depression? Yes Cancer? No Labs: Laboratory Tests 05/24/16 0600: Sodium 146 H, Potassium 3.4 L, Chloride 116 H, Carbon Dioxide 24, BUN 26 H, Creatinine 0.8, Estimated Creat Clear 131, Estimated GFR (MDRD) 96, Glucose 120 H, Calcium 8.2 L, Total Bilirubin 0.3, AST 25, ALT 25, Alkaline Phosphatase 83, Total Protein 7.5, Albumin 1.9 L, Globulin 5.6 H, Albumin/Globulin Ratio 0.3 L, WBC 7.2, RBC 3.35 L, Hgb 12.1 L, Hct 38.0 L, MCV 113.4 H, RDW 14.7, Plt Count 211, MPV 7.0 L, Gran % 69.6, Gran # 5.0, Lymphocytes % 22.7, Monocytes % 6.9, Eosinophils % 0.6, Basophils % 0.1, Lymphocytes # 1.6, Monocytes # 0.5, Eosinophils # 0.0, Basophils # 0.0, PUBS MCHC 31.9, MCH 36.1 H 05/23/16 1835: Vancomycin Trough 15.8 H Problem List: 1. Urinary tract infection with hematuria 2. Urinary tract infection due to extended-spectrum beta lactamase (ESBL) producing Escherichia coli Plan: BASED ON VANCOMYCIN TROUGH LEVEL, RECOMMEND CONTINUING VANCOMYCIN 2 GM IV Q18H. PHARMACY WILL CONTINUE TO MONITOR AND ADJUST APPROPRIATE. at 0894
--- NOTE | 2016-05-24 08:31 | ACUTE CARE PROGRESS NOTE (QUA) ---
Progress Notes Subjective Date 05/24/16 Time 0730 Note Patient resting in bed in no apparent distress. No fevers through the night. Urine is clear yellow. Urine and wound culture results noted. See plan for changes in antibiotics. Alert at baseline, noncommunicative. Shakes head no when asks about pain. Rate and rhythm regular. LS with loose rhonchi anteriorly. Abdomen soft. Multiple wounds covered in dressings, see nursing documentation. Patient/family reports: feeling better Nursing reports: no complaints Objective Findings Last VS-Temp:98.8 B/P:132/74 Pulse:87 Resp:20 SaO2:97 OXYGEN Last weight lbs:238 oz:4 K.068 Method:Bed Scales Reviewed: medications, vital signs, lab results Assessment/Plan Problem List 1. Sepsis Assessment/Plan: Stop Levaquin and Clindamycin. Continue Vancomycin. Zosyn and Invanz started. Qualifiers: Sepsis type: sepsis due to unspecified organism Qualified Code: A41.9 - Sepsis, unspecified organism 2. UTI (urinary tract infection) 3. HCAP (healthcare-associated pneumonia) 4. Traumatic brain injury Patient condition Improving Plan: continue current care (see above) This inpt stay is expected to cross 2 MNs from start of care Yes Antibiotic Stewardship (2) Infxn that will respond? Yes Right drug,dose,and route? Yes More targeted antbx? No at 0832
[2016-05-24 16:00] VITALS: BP 142/78
[2016-05-24 19:57] VITALS: BP 142/78
[2016-05-24 20:01] VITALS: BP 147/76
[2016-05-25 04:40] VITALS: BP 121/63
[2016-05-25 08:00] VITALS: BP 116/69
--- NOTE | 2016-05-25 08:05 | ACUTE CARE PROGRESS NOTE (QUA) ---
Progress Notes Subjective Date 05/25/16 Time 0803 Note Patient tolerating his antibiotic infusions well, tube feeds restarted yesterday. Patient is more alert and actually is verbal this morning with one word answers to questions. Unfortunately did have temperature above 100 this morning. Lungs are afflicted with loud rhonchi bilaterally at baseline, heart rate regular, abdomen soft, G-tube infusing well. Objective Findings Last VS-Temp:100.0 B/P:121/63 Pulse:102 Resp:22 SaO2:92 OXYGEN Last weight lbs:240 oz:7 K.061 Method:Bed Scales Assessment/Plan Problem List 1. Sepsis Qualifiers: Sepsis type: sepsis due to unspecified organism Qualified Code: A41.9 - Sepsis, unspecified organism 2. UTI (urinary tract infection) 3. HCAP (healthcare-associated pneumonia) 4. Traumatic brain injury Patient condition Improving Plan: continue current care, probable transfer back to skilled care to finish up antibiotics for sepsis and urinary tract infection tomorrow. This inpt stay is expected to cross 2 MNs from start of care Yes Antibiotic Stewardship (2) Infxn that will respond? Yes Right drug,dose,and route? Yes More targeted antbx? No at 0804
[2016-05-25 16:53] VITALS: BP 124/72
[2016-05-25 20:12] VITALS: BP 124/72
[2016-05-25 20:22] VITALS: BP 115/67
[2016-05-26] VITALS (13 sets, daily range): BP systolic 109–136; BP diastolic 63–81
--- NOTE | 2016-05-26 08:30 | ACUTE CARE PROGRESS NOTE (QUA) ---
Progress Notes Subjective Date 05/26/16 Time 0829 Note Patient's alertness level is about the same. No major changes overnight, continues to run low-grade fevers. Lungs continue to have dense rhonchi, abdomen soft, cardiopulmonary parameters are the same. Objective Findings Last VS-Temp:98.5 B/P:131/70 Pulse:86 Resp:20 SaO2:95 OXYGEN Last weight lbs:243 oz:1 K.251 Method:Bed Scales Assessment/Plan Problem List 1. Sepsis Qualifiers: Sepsis type: sepsis due to unspecified organism Qualified Code: A41.9 - Sepsis, unspecified organism 2. UTI (urinary tract infection) 3. HCAP (healthcare-associated pneumonia) 4. Traumatic brain injury Patient condition Improving Plan: consult surgeon (4 vascular access issues), continue antibiotics, in spite of low-grade fever every other parameter is improving. Hopeful discharge to skilled care for continuing antibiotics for his variety of sepsis organisms tomorrow. This inpt stay is expected to cross 2 MNs from start of care Yes Antibiotic Stewardship (2) Infxn that will respond? Yes Right drug,dose,and route? Yes More targeted antbx? No at 0829
--- NOTE | 2016-05-26 10:08 | CONSULT NOTE ---
Standard Demographics Patient Demo Date of Consultation: 05/26/16 Referring Provider: Santos Rowan MD Reason for Consultation: Groshong catheter placement PRIMARY DIAGNOSIS: SEVERE SEPSIS; SEPTIC SHOCK Allergies: Coded Allergies: tuberculin, purified protein deriva (tuberculin,purif.prot.deriv.) (Mild, ) History of Present Illness Chief Complaint: In need of IV access for antibiotics History of Present Illness: This is a 71-year-old gentleman seen in consultation from Dr. Rowan for Groshong catheter placement. He has a complicated history of recurrent infections (in particular pneumonia, cellulitis, and urinary tract infections). He is currently admitted with the diagnosis of sepsis and is in need of tunneled catheter for IV access for antibiotics. Past Medical History Reports: hypertension, seizure disorder. Surgical History Previous Surgery?Y HAS HAD BRAIN SURGERY G-TUBE PLACEMENT SUPRA-PUBIC CATH GROSHONG CATHETER Allergies Coded Allergies: tuberculin, purified protein deriva (tuberculin,purif.prot.deriv.) (Mild, ) Medications: Reported Medications Ascorbic Acid (Vitamin C) 1,000 MG GT DAILY GUAIFENESIN/DEXTROMETHORPHAN (Q-Tussin Dm Syrup) 10 ML PO Q4HP PRN COUGH ALBUTEROL (Albuterol 0.083% Neb) 2.5 MG INH Q6HP PRN SHORTNESS OF BREATH Bisacodyl (Bisacodyl Supp) 10 MG WI DAILYP PRN CONSTIPATION LACTOSE-REDUCED FOOD/FIBER (Jevity 1.5 Tree Liquid) 55 ML GT Q1 Acetaminophen (Acetaminophen Extra Strength) 1,000 MG GT Q6HP PRN PAIN/FEVER ONDANSETRON HCL (Zofran 4MG Tab) 4 MG GT DAILYP PRN NAUSEA Folic Acid/Mv,Fe,Other Min/Lut (Certa Plus Tablet) 1 EACH GT DAILY HYDROCODONE/ACETAMINOPHEN ([place] 10-325 Tablet) 1 TAB GT TID Calcium Carbonate ([id number]-082) 500 MG GT DAILY Ferrous Sulfate (Ferrous Sulfate 220MG/5ML Elixir;473ML Bottle) 330 MG GT DAILY VALPROIC ACID ( SODIUM SALT) (Depakene) 750 MG GT TID POLYETHYLENE GLYCOL (Miralax) 17 GM GT DAILY LOPERAMIDE HCL (Loperamide) 2 MG GT Q3HP PRN DIARRHEA Clonazepam (Clonazepam 0.5MG) 0.5 MG GT BID Famotidine (Pepcid 20MG Tablet) 20 MG GT BID Metoprolol Tartrate (Metoprolol) 25 MG GT BID Potassium Chloride 7.5 ML GT DAILY Topiramate (Topamax) 50 MG GT BID Lactulose (Lactulose) 20 GM GT DAILYP PRN CONSTIPATION Family history Negative for: CAD, HTN. Smoking Hx Tobacco: No Smoker: Unknown if Ever Smoked Type: N/A Packs/day: N/A Are you/the child exposed to second-hand smoke: No Alcohol Alcohol: No Hx of Drug Use Drug Use? No Review of Systems Constitutional No: recent weight loss. Skin Positive for: swelling. Immune/allergy No: anaphalaxis. ENT No: nose bleed. GI No: vomitting. (male) No: hematuria. Heme No: petechia. Neurological Positive for: bladder dysfunction. Psychiatric No: anxious. Physical Exam VS/I&O Vital Signs Date Time Temp Pulse Resp B/P Pulse O2 O2 Flow FiO2 Ox Delivery Rate 05/26 0908 98.5 86 20 131/70 95 1 05/26 0737 98.5 86 20 131/70 95 OXYGEN 05/26 0656 1 05/26 0527 1 05/26 0406 98.9 81 20 125/63 96 OXYGEN 05/26 0330 1 05/26 0100 1 05/25 2255 1 05/25 2200 98.7 05/25 2046 1 05/25 2022 100.2 105 18 115/67 94 OXYGEN 05/26 2011 100.2 105 20 124/72 88 1 05/25 1843 1 05/25 1830 1 05/25 1653 1 05/25 1653 99.6 102 20 124/72 88 OXYGEN 05/25 1651 1 05/25 1500 1 05/25 1327 1 05/25 1300 1 05/25 1156 1 05/25 1052 1 05/25 1027 1 I&O 05/26 0700 Intake Total 3977 Output Total 1500 Balance 2477 Intake, IV 2179 Intake, Tube 1558 Feeding Intake, Tube 240 Irrigant Output, Stool Output, Urine 1500 Patient 110.251 kg Weight Exam General appearance no acute distress Respiratory no distress Cardiovascular regular rate and rhythm Abdomen soft Plan Plan: Impression: Sepsis Inadequate venous access for antibiotics Plan: Groshong catheter placement at 1000
--- NOTE | 2016-05-26 16:02 | Operative Note ---
Surgeon/Diagnoses Surgeon/Geophysical Prospecting Surveyor(s) Date of procedure: 05/26/16 Surgeon: MD Charo Borrero Diagnoses Pre-op diagnosis: Sepsis Inadequate venous access Post-op diagnosis Same Procedure Procedure Procedure: Groshong placement (LEFT subclavian vein access) Indications: SHAKIR DELUNA is a 71 year-old Male with a history of sepsis and need for deep venous access for IV antibiotics. He has tenuous access currently. Findings: Attempts at venous access by way of RIGHT subclavian vein unsuccessful LEFT subclavian vein access with notable "shallow placement" Catheter easily flushed Procedure Description: After informed consent was obtained, the patient was taken to the operating room and placed in the supine position. Monitored anesthesia care ensued and his chest and neck were prepped and draped in a sterile fashion. After infiltration with local anesthetic a large bore needle was utilized to attempt access in the RIGHT subclavian vein. Access was unsuccessful and the decision was made to proceed with attempts on the LEFT. The LEFT subclavian vein was accessed with a large bore needle. The guidewire was placed in position and confirmed with fluoroscopy. The dilator with sheath was then placed in position. The dilator and guidewire were removed. The Groshong catheter was placed through the sheath. The tip was notably in good position in the superior vena cava. The catheter was then tunneled for a LEFT upper chest exit site. Reevaluation with fluoroscopy revealed some displacement of the tip resulting in a "shallow placement". This was felt to be adequate for the patient's IV antibiotic needs. The catheter was secured to the hub with silk suture and the hub was secured to skin utilizing interrupted nylon. Dressings were applied and the patient was transferred to recovery in stable condition. Chest x-ray is pending. EBL (ml): 10 Anesthesia: Monitored anesthesia care Complications: No immediate Specimens: none Disposition Disposition: Stable to recovery from where he will be transferred back to the floor after chest x-ray. at 1602
--- NOTE | 2016-05-26 16:15 | Anesthesia Record ---
Anesthesia Record Part I Total IV fluids: 250 EBL (ml): 50 Urine Output: 0 Units of blood given: 0 B/P: 127/86 % SaO2: 92 Pulse: 94 Resps: 16 Temp: 97.7 Patient is: Awake, Stable Stable to PACU at: 1605 at 1615
--- NOTE | 2016-05-26 16:18 | Anesthesia Record ---
Anesthesia Record Part II Discharge time: 1625 Destination: Second Floor PACU nurse assessment review? Yes Patient is: Awake, Stable Anesthesia complications? No at 1613
--- NOTE | 2016-05-26 16:56 | RADIOLOGY REPORT PS360 ---
CHEST-PORTABLE HISTORY: left SCV Groshong ORDERING PHYSICIAN: Santos Rowan MD PATIENT AGE: 71 years COMPARISON: 05/20/2016 FINDINGS: Left subclavian Groshong catheter has been placed. The tip is in the region of the proximal aspect of the superior vena cava. Consolidation is present in the right perihilar region and there is also increased density in the lung bases bilaterally. There is no evidence of pneumothorax. IMPRESSION: 1. Status post Groshong catheter placement in good position with no evidence of pneumothorax. 2. Right perihilar and bibasilar airspace disease
[2016-05-27 00:07] VITALS: BP 138/83
[2016-05-27 04:16] VITALS: BP 156/60
--- NOTE | 2016-05-27 07:33 | POST-OP PROGRESS NOTE ---
Post Op Subjective Data Patient is post-op day 1 Subjective data: Per nursing, there has been no "issues with the catheter" overnight. Post op objective data Vitals,I&O,and Labs: Vital signs, intake and output,and available lab data for the last 24 hours is as noted below. Vital Signs Date Time Temp Pulse Resp B/P Pulse O2 O2 Flow FiO2 Ox Delivery Rate 05/27 0656 3.5 05/27 0510 3.5 05/27 0416 98.3 82 20 156/60 98 OXYGEN 05/27 0120 3.5 05/27 0007 98.0 95 20 138/83 91 OXYGEN 05/26 2228 3.5 05/26 2225 98.5 95 20 133/72 93 3.5 / 2100 3.5 05/26 2100 98.6 92 20 110/75 94 3.5 05/26 2000 98.4 100 20 122/69 93 3.5 04 1900 3.5 / 1900 98.5 95 20 133/72 93 3.5 05/26 1830 98.5 92 20 123/81 93 3.5 / 1800 98.8 92 16 109/64 99 3.5 / 1745 98.8 96 16 129/81 90 3.5 / 1730 98.6 94 20 123/72 94 3.5 / 1715 98.0 97 22 136/76 90 3.5 04/ 1700 3.5 04/ 1700 98.0 98 22 116/72 93 3 04/ 1645 97.1 96 18 130/53 100 OXYGEN / 1638 86 20 131/70 95 / 1635 97.7 80 18 133/76 95 OXYGEN 04/20 1625 101 18 104/75 95 OXYGEN /20 1615 97.7 97 18 149/92 94 OXYGEN / 1605 97.7 96 18 127/86 93 OXYGEN / 1300 1 05/26 1100 1 05/26 0908 98.5 86 20 131/70 95 1 / 0900 1 05/26 0737 98.5 86 20 131/70 95 OXYGEN / 1500 / 2300 / 0700 Intake Total 50 2630 Output Total 550 700 Balance -500 1930 Intake, IV 50 1902 Intake, Oral 0 Intake, Tube 668 Feeding Intake, Tube 0 60 Irrigant Output, 0 Emesis Output, 0 Estimated Blood Loss Output, Other 0 Output, Stool Output, Urine 550 700 Patient 110.253 kg 111.669 kg Weight Laboratory Tests Test Result Date Time Chemistry Sodium (mmoL/L) 146 05/24 0600 Potassium (mmoL/L) 3.4 05/24 0600 Chloride (mmoL/L) 116 05/24 0600 Carbon Dioxide (mmoL/L) 24 05/24 0600 BUN (mg/dL) 26 05/24 0600 Creatinine (mg/dL) 0.8 05/24 06 Estimated Creat Clear (ML/MIN) 131 05/24 0600 Estimated GFR (MDRD) (ML/MIN) 96 05/24 0600 Glucose (mg/dL) 120 05/24 0600 Lactic Acid (MMOL/L) 2.5 05/21 0230 Calcium (mg/dL) 8.2 05/24 0500 Total Bilirubin (mg/dL) 0.3 05/24 0500 AST (U/L) 25 05/24 0600 ALT (U/L) 25 05/24 0600 Alkaline Phosphatase (U/L) 83 05/24 0600 Troponin I (ng/mL) 0.06 05/20 2215 Total Protein (gm/dL) 7.5 05/24 0500 Albumin (gm/dL) 1.9 05/24 0500 Globulin (gm/dL) 5.6 05/24 599 Albumin/Globulin Ratio 0.3 05/24 0500 Amylase (U/L) 169 05/20 2230 Lipase (U/L) 254 05/20 2230 Hematology WBC (K/MM3) 7.2 05/24 599 RBC (M/mm3) 3.35 05/24 0500 Hgb (g/dL) 12.1 05/24 0500 Hct (%) 38.0 05/24 0500 MCV (fl) 113.4 05/24 599 RDW (%) 14.7 05/24 599 Plt Count (K/mm3) 211 05/24 0500 MPV (fl) 7.0 05/24 599 Gran % (%) 69.6 05/24 599 Gran # (K/mm3) 5.0 05/24 599 Total Counted (#CELLS) 100 05/20 2215 Lymphocytes % (%) 22.7 05/24 599 Monocytes % (%) 6.9 05/24 06 Eosinophils % (%) 0.6 05/24 599 Basophils % (%) 0.1 05/24 599 Neutrophils (%) 89 05/20 2214 Lymphocytes (Manual) (%) 8 05/20 221 Lymphocytes # (K/mm3) 1.6 05/24 599 Monocytes (Manual) (%) 3 05/20 221 Monocytes # (K/mm3) 0.5 05/24 599 Eosinophils # (K/mm3) 0.0 05/24 599 Basophils # (K/MM3) 0.0 05/24 599 Platelet Estimate NORMAL 05/20 2214 Anisocytosis 1+ 05/20 2214 PUBS MCHC (g/dl) 31.9 05/24 599 Immunology MCH (pg) 36.1 05/24 599 Toxicology Vancomycin Trough (mcg/mL) 16.5 05/26 183 Urines Urine Color YELLOW 05/21 2335 Urine Appearance CLEAR 05/21 2335 Urine pH 8.0 05/21 2335 Ur Specific [place] 1.020 05/21 2335 Urine Protein (mg/dL) 3+ 05/21 2335 Urine Ketones (mg/dL) TRACE 05/21 2335 Urine Blood 1+ 05/21 2335 Urine Nitrate NEGATIVE 05/21 2335 Urine Bilirubin NEGATIVE 05/21 2335 Urine Urobilinogen (E.U./dL) 1.0 05/21 2335 Ur Leukocyte Esterase 2+ 05/21 2335 Urine RBC (rbc/hpf) 3-5 05/21 2335 Urine WBC (wbc/hpf) 10-20 05/21 2335 Ur Squamous Epith Cells (#/hpf) 5-10 05/21 2335 Calcium Oxalate Crystal (#/hpf) 1+ 05/20 233 Triple Phos Crystals (#/hpf) 2+ 05/21 2335 Amorphous Sediment 1+ 05/21 2335 Urine Bacteria 2+ 05/21 2335 Urine Glucose NEGATIVE 05/21 2335 Physical Exam VS/I&O Vital Signs Date Time Temp Pulse Resp B/P Pulse O2 O2 Flow FiO2 Ox Delivery Rate 05/27 0656 3.5 05/27 0510 3.5 05/27 0416 98.3 82 20 156/60 98 OXYGEN 05/27 0120 3.5 05/27 0007 98.0 95 20 138/83 91 OXYGEN 05/26 2228 3.5 05/26 2225 98.5 95 20 133/72 93 3.5 05/26 2100 3.5 05/26 2100 98.6 92 20 110/75 94 3.5 05/26 2000 98.4 100 20 122/69 93 3.5 05/26 1900 3.5 05/26 1900 98.5 95 20 133/72 93 3.5 05/26 1830 98.5 92 20 123/81 93 3.5 05/26 1800 98.8 92 16 109/64 99 3.5 05/26 1745 98.8 96 16 129/81 90 3.5 05/26 1730 98.6 94 20 123/72 94 3.5 05/26 1715 98.0 97 22 136/76 90 3.5 05/26 1700 3.5 05/26 1700 98.0 98 22 116/72 93 3 05/26 1645 97.1 96 18 130/53 100 OXYGEN 05/26 1638 86 20 131/70 95 05/26 1635 97.7 80 18 133/76 95 OXYGEN 05/26 1625 101 18 104/75 95 OXYGEN 05/26 1615 97.7 97 18 149/92 94 OXYGEN 05/26 1605 97.7 96 18 127/86 93 OXYGEN 05/26 1300 1 05/26 1100 1 05/26 0908 98.5 86 20 131/70 95 1 05/26 0900 1 05/26 0737 98.5 86 20 131/70 95 OXYGEN I&O 05/27 0700 Intake Total 2680 Output Total 1250 Balance 1430 Intake, IV 1952 Intake, Oral 0 Intake, Tube 668 Feeding Intake, Tube 60 Irrigant Output, 0 Emesis Output, 0 Estimated Blood Loss Output, Other 0 Output, Stool Output, Urine 1250 Patient 111.669 kg Weight Exam General appearance no acute distress Respiratory no distress Cardiovascular regular rate and rhythm Findings/Data Evaluation of the Groshong reveals no sign of leakage, infection, or other complication. Post op patient plan Diagnoses: Sepsis/inadequate venous access-stable status post Groshong placement Plan: utilize Groshong as needed This inpt stay is expected to cross 2 MNs from start of care Yes Antibiotic Stewardship (2) Infxn that will respond? Yes Right drug,dose,and route? Yes More targeted antbx? No at 0764
--- NOTE | 2016-05-27 07:44 | ACUTE CARE PROGRESS NOTE (QUA) ---
Progress Notes Subjective Date 05/27/16 Time 0743 Note Patient tolerated Groshong catheter placement well yesterday. This morning he is semi-alert. Has reversed through the night. Lungs have good air movement, abdomen soft, G-tube infusing well. Objective Findings Last VS-Temp:98.3 B/P:156/60 Pulse:82 Resp:20 SaO2:98 OXYGEN Last weight lbs:246 oz:3 K.669 Method:Bed Scales Assessment/Plan Problem List 1. Sepsis Qualifiers: Sepsis type: sepsis due to unspecified organism Qualified Code: A41.9 - Sepsis, unspecified organism 2. UTI (urinary tract infection) 3. HCAP (healthcare-associated pneumonia) 4. Traumatic brain injury Patient condition Improving, Stable Plan: initiate discharge plan This inpt stay is expected to cross 2 MNs from start of care Yes Antibiotic Stewardship (2) Infxn that will respond? Yes Right drug,dose,and route? Yes More targeted antbx? No at 0744
--- NOTE | 2016-05-27 07:48 | DISCHARGE SUMMARY STANDARD ---
Demographics Admit date: 05/20/16 Discharge date: 05/27/16 History of present illness History of present illness 71-year-old white male well known to the [facility] inpatient service with frequent exacerbation secondary to aspiration pneumonia, cellulitis and urinary tract infections. Sent from his long-term facility with hypoxia and mental status change, found in the emergency apartment to have evidence of sepsis syndrome with increased lactic acid, white blood cell count and elevated temperature readings. Multiple sources were possibly identified including recurrent aspiration pneumonia, urinary tract infection and significant skin lesions/breakdown/ cellulitis. Admitted to hospital for broad-spectrum antibiotics and sepsis protocol treatment. Hospital Course Hospital Course: Patient was admitted to hospital. Found to have several organisms, #1 included gram-positive cocci of the bloodstream which grew Kocuria organism, sensitive to vancomycin. Urine culture showed Escherichia coli and Morganella species, sensitive to extended spectrum beta-lactamase effective antibiotics. He was started on triple therapy with vancomycin, Invanz and Zosyn, and improved in a stepwise fashion and a very slow wave. However, alertness levels and respiratory status improved. Fever curve slowly improved. Because of his need for long-term IV access a Groshong catheter was placed yesterday by surgery without complications. Patient will be transferred back to detention today with 2 weeks of vancomycin 2 g every 18 hours, Invanz 1 g daily, and Zosyn 4.5 g every 8 hours, each for 2 weeks. Other medications are as noted on his discharge summary. He will need CBC and BMP in one week. Discharge diagnoses Problem List 1. Sepsis 2. UTI (urinary tract infection) 3. HCAP (healthcare-associated pneumonia) 4. Traumatic brain injury Medications Medications: Discharge meds are as noted. Follow up Follow up in office in: 7 DAYS with: Ran Florentino at [id number]
--- NOTE | 2016-05-27 07:48 | DISCHARGE SUMMARY STANDARD ---
Demographics Admit date: 05/20/16 Discharge date: 05/27/16 History of present illness History of present illness 71-year-old white male well known to the [facility] inpatient service with frequent exacerbation secondary to aspiration pneumonia, cellulitis and urinary tract infections. Sent from his longterm facility with hypoxia and mental status change, found in the emergency apartment to have evidence of sepsis syndrome with increased lactic acid, white blood cell count and elevated temperature readings. Multiple sources were possibly identified including recurrent aspiration pneumonia, urinary tract infection and significant skin lesions/breakdown/ cellulitis. Admitted to hospital for broad-spectrum antibiotics and sepsis protocol treatment. Hospital Course Hospital Course: Patient was admitted to hospital. Found to have several organisms, #1 included gram-positive cocci of the bloodstream which grew Kocuria organism, sensitive to vancomycin. Urine culture showed Escherichia coli and Morganella species, sensitive to extended spectrum beta-lactamase effective antibiotics. He was started on triple therapy with vancomycin, Invanz and Zosyn, and improved in a stepwise fashion and a very slow wave. However, alertness levels and respiratory status improved. Fever curve slowly improved. Because of his need for long-term IV access a Groshong catheter was placed yesterday by surgery without complications. Patient will be transferred back to intermediate today with 2 weeks of vancomycin 2 g every 18 hours, Invanz 1 g daily, and Zosyn 4.5 g every 8 hours, each for 2 weeks. Other medications are as noted on his discharge summary. He will need CBC and BMP in one week. Discharge diagnoses Problem List 1. Sepsis 2. UTI (urinary tract infection) 3. HCAP (healthcare-associated pneumonia) 4. Traumatic brain injury Medications Medications: Discharge meds are as noted. Follow up Follow up in office in: 7 DAYS with: Ran Florentino at [phone]
[2016-05-27] MEDS ORDERED: INVANZ1 G1 IV (07:51)
[2016-05-27] MEDS ORDERED: VANCO-0.9%1.75 GM/50 IV (07:51)
[2016-05-27] MEDS ORDERED: PIPERACILLIN IV (07:52)
[2016-05-27] MEDS ORDERED: TAZOBACTAM IV (07:52)
[2016-05-27] MEDS ORDERED: [UNRECOGNIZED DRUG - OTHER] IV (07:52)
[2016-05-27 09:03] VITALS: BP 118/52
--- NOTE | 2016-05-27 10:49 | CONSULT NOTE ---
Pharmacokinetic Consult Date of consult: 05/27/16 Time of consult: 1048 Referring provider: DR. CARROLL Reason for consult: VANCOMYCIN TROUGH LEVEL Allergies: Coded Allergies: tuberculin, purified protein deriva (tuberculin,purif.prot.deriv.) (Mild, ) Home Medications: Reported Medications Ascorbic Acid (Vitamin C) 1,000 MG GT DAILY GUAIFENESIN/DEXTROMETHORPHAN (Q-Tussin Dm Syrup) 10 ML PO Q4HP PRN COUGH ALBUTEROL (Albuterol 0.083% Neb) 2.5 MG INH Q6HP PRN SHORTNESS OF BREATH Bisacodyl (Bisacodyl Supp) 10 MG WI DAILYP PRN CONSTIPATION LACTOSE-REDUCED FOOD/FIBER (Jevity 1.5 Tree Liquid) 55 ML GT Q1 Acetaminophen (Acetaminophen Extra Strength) 1,000 MG GT Q6HP PRN PAIN/FEVER ONDANSETRON HCL (Zofran 4MG Tab) 4 MG GT DAILYP PRN NAUSEA Folic Acid/Mv,Fe,Other Min/Lut (Certa Plus Tablet) 1 EACH GT DAILY HYDROCODONE/ACETAMINOPHEN ([place] 10-325 Tablet) 1 TAB GT TID Calcium Carbonate ([id number]) 500 MG GT DAILY Ferrous Sulfate (Ferrous Sulfate 220MG/5ML Elixir;473ML Bottle) 330 MG GT DAILY VALPROIC ACID ( SODIUM SALT) (Depakene) 750 MG GT TID POLYETHYLENE GLYCOL (Miralax) 17 GM GT DAILY LOPERAMIDE HCL (Loperamide) 2 MG GT Q3HP PRN DIARRHEA Clonazepam (Clonazepam 0.5MG) 0.5 MG GT BID Famotidine (Pepcid 20MG Tablet) 20 MG GT BID Metoprolol Tartrate (Metoprolol) 25 MG GT BID Potassium Chloride 7.5 ML GT DAILY Topiramate (Topamax) 50 MG GT BID Lactulose (Lactulose) 20 GM GT DAILYP PRN CONSTIPATION Height (feet): 6 Height (inches): 2.00 Medical History: CAD? No Angina: No IA: No Hypertension? Yes Hyperlipidemia? No CHF? No DVT? No PE? No COPD? No Asthma? No Anemia? No GERD? Yes Gastric ulcers? No GI Bleed? No Hernia? No Thyroid Problems? No Hypothyroidism? No CVA? No Seizures? Yes Diabetes? No Renal Insuffiency? No UTI? Yes Stones? No GB Disease: No Nephritic Syndrome? No Asplenia? No Hepatitis? No Sickle Cell Disease? No Arthritis? No Migraines? No Cataracts? No Glaucoma? No MRSA? No HIV? No TB? No Anxiety? Yes Depression? Yes Cancer? No Labs: Laboratory Tests 05/26/16 1837: Vancomycin Trough 16.5 H Problem List: 1. Urinary tract infection with hematuria 2. Urinary tract infection due to extended-spectrum beta lactamase (ESBL) producing Escherichia coli Plan: BASED ON VANCOMYCIN TROUGH LEVEL, RECOMMEND CONTINUING VANCOMYCIN 2 GM IV Q18H. PATIENT IS BEING TRANSFERED BACK TO [facility] TODAY. at [id number]
--- NOTE | 2016-05-27 10:49 | CONSULT NOTE ---
Pharmacokinetic Consult Date of consult: 05/27/16 Time of consult: 1048 Referring provider: DR. CARROLL Reason for consult: VANCOMYCIN TROUGH LEVEL Allergies: Coded Allergies: tuberculin, purified protein deriva (tuberculin,purif.prot.deriv.) (Mild, ) Home Medications: Reported Medications Ascorbic Acid (Vitamin C) 1,000 MG GT DAILY GUAIFENESIN/DEXTROMETHORPHAN (Q-Tussin Dm Syrup) 10 ML PO Q4HP PRN COUGH ALBUTEROL (Albuterol 0.083% Neb) 2.5 MG INH Q6HP PRN SHORTNESS OF BREATH Bisacodyl (Bisacodyl Supp) 10 MG CO DAILYP PRN CONSTIPATION LACTOSE-REDUCED FOOD/FIBER (Jevity 1.5 Tree Liquid) 55 ML GT Q1 Acetaminophen (Acetaminophen Extra Strength) 1,000 MG GT Q6HP PRN PAIN/FEVER ONDANSETRON HCL (Zofran 4MG Tab) 4 MG GT DAILYP PRN NAUSEA Folic Acid/Mv,Fe,Other Min/Lut (Certa Plus Tablet) 1 EACH GT DAILY HYDROCODONE/ACETAMINOPHEN ([place] 10-325 Tablet) 1 TAB GT TID Calcium Carbonate ([id number]) 500 MG GT DAILY Ferrous Sulfate (Ferrous Sulfate 220MG/5ML Elixir;473ML Bottle) 330 MG GT DAILY VALPROIC ACID ( SODIUM SALT) (Depakene) 750 MG GT TID POLYETHYLENE GLYCOL (Miralax) 17 GM GT DAILY LOPERAMIDE HCL (Loperamide) 2 MG GT Q3HP PRN DIARRHEA Clonazepam (Clonazepam 0.5MG) 0.5 MG GT BID Famotidine (Pepcid 20MG Tablet) 20 MG GT BID Metoprolol Tartrate (Metoprolol) 25 MG GT BID Potassium Chloride 7.5 ML GT DAILY Topiramate (Topamax) 50 MG GT BID Lactulose (Lactulose) 20 GM GT DAILYP PRN CONSTIPATION Height (feet): 6 Height (inches): 2.00 Medical History: CAD? No Angina: No [place]: No Hypertension? Yes Hyperlipidemia? No CHF? No DVT? No PE? No COPD? No Asthma? No Anemia? No GERD? Yes Gastric ulcers? No GI Bleed? No Hernia? No Thyroid Problems? No Hypothyroidism? No CVA? No Seizures? Yes Diabetes? No Renal Insuffiency? No UTI? Yes Stones? No GB Disease: No Nephritic Syndrome? No Asplenia? No Hepatitis? No Sickle Cell Disease? No Arthritis? No Migraines? No Cataracts? No Glaucoma? No MRSA? No HIV? No TB? No Anxiety? Yes Depression? Yes Cancer? No Labs: Laboratory Tests 05/26/16 1837: Vancomycin Trough 16.5 H Problem List: 1. Urinary tract infection with hematuria 2. Urinary tract infection due to extended-spectrum beta lactamase (ESBL) producing Escherichia coli Plan: BASED ON VANCOMYCIN TROUGH LEVEL, RECOMMEND CONTINUING VANCOMYCIN 2 GM IV Q18H. PATIENT IS BEING TRANSFERED BACK TO [facility] TODAY. at 2477
[2016-05-27 11:51] VITALS: BP 115/61
[2016-05-27 16:39] VITALS: BP 142/77
[2016-05-27 17:30] VITALS: BP 142/77
== END 2016-05-27 17:13 | DRG 871 ==
LOC: ER 21:52 → 2ND 05-21 00:21 → ER 05-21 00:21 → 2ND 05-21 00:46
PROVIDERS: Emergency Medicine; Internal Medicine Adolescent Medicine; Surgery
PROC: 05H633Z Insertion of Infusion Device into Left Subclavian Vein, Percutaneous Approach (ICD-10-PCS; principal; 2016-05-26 12:30)
DX: A41.89 Other specified sepsis (principal); J18.9 Pneumonia, unspecified organism; N39.0 Urinary tract infection, site not specified; G93.89 Other specified disorders of brain; Z93.1 Gastrostomy status; I10 Essential (primary) hypertension; Z74.01 Bed confinement status; Z86.14 Personal history of Methicillin resistant Staphylococcus aureus infection; V00-Y99 External causes of morbidity; Z87.820 Personal history of traumatic brain injury; Y95 Nosocomial condition; B96.20 Unspecified Escherichia coli [E. coli] as the cause of diseases classified elsewhere; B96.4 Proteus (mirabilis) (morganii) as the cause of diseases classified elsewhere
CPT/HCPCS: C1751; J1335; J1642; J2543; J3370

== ENCOUNTER → 2016-05-20 | Outpatient (CLI) | payer MEDICARE, MEDICAID ==
[~2016-05-20] MED LIST: ACETAMINOPHEN500 M2 GT; ACETAMINOPHEN500 M3 PO; ACETAMINOPHEN500 M5 GT; ALBUTEROL2.5 MG/NEB IN; ALBUTEROL2.5 MG/NEB INH; AMOXIL500 MG GT; ARTIFICIAL TEARS OP; ARTIFICIAL1 DROP/0.0 OP; ASPIRIN 81MG TA81 MG GT; BACTROBAN23 TP; BISAC-EVAC10 MG PR; CALCIUM CARB500 MG GT; CEFAZOLIN1 G1 IV; CERTA PLUS TAB1 EACH GT; CERTAVITE GT; CIPRO500 MG/5 M PO; CLINDAMYCIN HY300 MG GT; CLONAZEPAM0.5 M1 GT; COLACE100 MG/10 GT; DEPAKENE250 MG/5 M GT; ENULOSE10 GM/15 M PO; ERYTHROCIN STE250 M2 PO; FERROUS SU220 MG/51 GT; FLAGYL 500MG.500 MG GT; FUROSEMIDE40 MG IM; GENTAMICIN SUL IV; GUAIFENESIN DM PO; HYDROCODONE BIT PO; HYDROCODONE BIT1 T39 GT; IBUPROFEN 600M600 MG GT; INVANZ1 G1 IV; JEVITY 1.5 CA1000 ML GT; JEVITY CA GT; JEVITY CA PO; JUVEN1 PDR GT; KLONOPIN 0.5MG0.5 MG NG; LACTULOSE10 GM/15 M GT; LEVAQUIN500 MG GT; LEVAQUIN500 MG PO; LEVOFLOXAC500 MG/20 PO; LEVSIN 0.1250.125 MG SL; LIDOCAINE VISC100 M1 TP; LIQUITEARS 15 M15 ML OP; LOPERAMIDE2 MG GT; MACROBID100 M3 PO; MENTHOL-ZINC OXIDE TP; METOPROLOL25 MG GT; MIRALAX(PO17 GM/1 PA GT; MULTIVITAMIN1 TA1 PO; NORCO 325 MG-101 TAB GT; NORCO1 TAB GT; OMNICEF 300 MG300 MG PO; PEPCID 20MG TAB20 MG GT; PIPERACILLIN IV; POTASS CHL20 MEQ/15 GT; PRO STAT GT; PROSTAT PO; ROBAFEN DM473 ML GT; ROCEPHIN 1 GM VI1 GM IM; ROCEPHIN 1 GM VI1 GM IV; ROCEPHIN1 GM IM; SANTYL250 U/GM EX; SELENIUM SULFI180 ML TP; TAZOBACTAM IV; THERAPEUTIC M1 TAB GT; TOBRAMYCIN300 MG/5 M IM; TOPAMAX50 MG GT; TOPAMAX50 MG PO; TOPICORT0.25% TP; TOPIRAMATE 25MG25 MG PO; TOPIRAMATE50 MG GT; VALPROIC A250 MG/51 GT; VANCO-0.9%1.75 GM/50 IV; VANCOCIN HCL1000 M1 INJ; VANCOMYCIN 101000 MG IV; VANCOMYCIN HC1000 MG IV; VANCOMYCIN IV; VITAMIN C500 M1 GT; ZOFRAN4 MG GT; [UNRECOGNIZED DRUG - OTHER] IM; [UNRECOGNIZED DRUG - OTHER] IV; [UNRECOGNIZED DRUG - OTHER] TP
== END ==
LOC: LAB 12:07
DX: S91.302A Unspecified open wound, left foot, initial encounter (principal)

== ENCOUNTER → 2016-06-09 | Outpatient (CLI) | payer MEDICARE, MEDICAID ==
[~2016-06-09] MED LIST changes: +CALCIUM CARB500 MG GT; +PIPERACILLIN IV; +TAZOBACTAM IV; +VANCO-0.9%1.75 GM/50 IV; +[UNRECOGNIZED DRUG - OTHER] IV
[2016-06-09 07:44] LABS: BUN 12 mg/dL (7-18)
[2016-06-09 08:06] LABS: GFR (ESTIMATED) 83 ML/MIN (>60)
== END ==
LOC: LAB 07:17
PROVIDERS: Emergency Medicine
DX: A41.9 Sepsis, unspecified organism (principal); Z51.81 Encounter for therapeutic drug level monitoring

== ENCOUNTER → 2016-06-13 | Outpatient (CLI) | payer MEDICARE, MEDICAID ==
[2016-06-13 10:54] LABS: URINE BILIRUBIN - DIPSTICK NEGATIVE (NEG); URINE BLOOD NEGATIVE (NEG)
== END ==
LOC: LAB 10:12
PROVIDERS: Emergency Medicine
DX: A41.9 Sepsis, unspecified organism (principal); Z51.81 Encounter for therapeutic drug level monitoring